=== PATIENT | female | born 1955 | race Caucasian/White ===

== ENCOUNTER 2018-06-27 07:55 | Emergency (ER) | payer MEDICARE, BC ==
[2018-06-27 08:08] VITALS: BP 105/62
--- NOTE | 2018-06-27 08:34 | UC ---
Abdominal Pain Female HPI - HPI Summary HPI Summary: diarrhea x 20 days abdominal cramps diarrhea is everyday , multiple times hx of babeciosis has been of antibiotics since Apr no fever no chills, no blood in her stool - History of Current Complaint Chief Complaint: UCGI Stated Complaint: DIARRHEA Time Seen by Provider: 06/27/18 08:15 Hx Obtained From: Patient ?: No Onset/Duration: Gradual Onset, Lasting Days - 20, Still Present Timing: Constant Severity Initially: Moderate Severity Currently: Moderate Pain Intensity: 0 Location: Diffuse Radiates: No Character: Cramping Aggravating Factor(s): Food Alleviating Factor(s): Nothing Associated Signs and Symptoms: Positive: Diarrhea. Negative: Fever, Cough, Chest Pain, Dizzy, Back Pain, Constipation, Blood in Stool, Urinary Symptoms, Decreased Appetite, Vaginal Bleeding, Vaginal Discharge, Nausea, Vomiting Allergies/Adverse Reactions: Allergies Allergy/AdvReac Type Severity Reaction Status Date / Time Gadolinium-Containing Allergy See Comment Verified 06/27/18 08:09 Contrast Medi Home Medications: Home Medications Famciclovir 500 mg PO QID 06/27/18 [History Confirmed 06/27/18] Multivitamin [Multivitamins] 1 cap PO DAILY 06/27/18 [History Confirmed 06/27/18 ] PMH/Surg Hx/FS Hx/Imm Hx - Additional Past Medical History Additional PMH: David-Cramer, babeciosis - Surgical History Surgical History: Yes Surgery Procedure, Year, and Place: RIGHT KNEE 1993, RIGHT SHOULDER 2006. FACIAL SURGERY 1989 - Family History Known Family History: Negative: Diabetes - Social History Alcohol Use: None Substance Use Type: None Smoking Status (MU): Former Smoker When Did the Patient Quit Smoking/Using Tobacco: 1997 Review of Systems All Other Systems Reviewed And Are Negative: Yes Constitutional: Positive: Negative Skin: Positive: Negative Eyes: Positive: Negative ENT: Positive: Negative Gastrointestinal: Positive: Diarrhea Is Patient Immunocompromised?: No Physical Exam Triage Information Reviewed: Yes Appearance: Well-Appearing, No Pain Distress, Well-Nourished Vital Signs: Initial Vital Signs Temp 98.6 F 06/27/18 08:03 Pulse 71 06/27/18 08:03 Resp 16 06/27/18 08:03 BP 105/62 06/27/18 08:03 Pulse Ox 97 06/27/18 08:03 Vital Signs Reviewed: Yes Eye Exam: Normal Eyes: Positive: Conjunctiva Clear ENT: Positive: Normal ENT inspection, Hearing grossly normal, Pharynx normal Neck exam: Normal Neck: Positive: Supple, Nontender, No Lymphadenopathy Respiratory: Positive: Chest non-tender, Lungs clear, Normal breath sounds Cardiovascular: Positive: RRR, No Murmur, Pulses Normal Abdomen Description: Positive: Nontender, No Organomegaly, Soft. Negative: CVA Tenderness (R), CVA Tenderness (L), Distended, Guarding Bowel Sounds: Positive: Present Skin Exam: Normal Abd Pain Female Course/Dx - Differential Dx/Diagnosis Provider Diagnosis: Diarrhea Discharge - Sign-Out/Discharge Documenting (check all that apply): Patient Departure All imaging exams completed and their final reports reviewed: No Studies - Discharge Plan Condition: Stable Disposition: HOME Patient Education Materials: Acute Diarrhea (ED) Referrals: Maureen Butterfield MD [Primary Care Provider] - 7 Days Additional Instructions: will check stool culture / check for c.diff will call you with the culture results will start antibiotics if + bacterial / + C.diff - Billing Disposition and Condition Condition: STABLE Disposition: Home
== END 2018-06-27 08:39 | disposition home or self-care (01) ==
LOC: UCEAST 07:55
DX: R19.7 Diarrhea, unspecified (principal); R10.9 Unspecified abdominal pain; Z87.891 Personal history of nicotine dependence; Z91.041 Radiographic dye allergy status
CPT/HCPCS: 99211; G0463